=== PATIENT | male | born 1945 ===

== ENCOUNTER → 2016-10-20 | Outpatient (CLI) | payer BC, MEDICARE ==
--- NOTE | 2016-10-20 12:01 | Diagnostic Imaging Report ---
Indication: Chest Pain Comparison: None A single view chest radiograph was obtained. Findings: Cardiomediastinal appearance is within normal limits for age. Pulmonary vascularity is appropriate. The diaphragmatic contour is smooth and costophrenic angles are sharp. No pleural effusions are identified. The bones are unremarkable. Impression: No acute findings
== END | disposition home or self-care (01) ==
LOC: RAD 09:59
DX: I10 Essential (primary) hypertension (principal)
CPT/HCPCS: 71010